=== PATIENT | female | born 2000 | race Caucasian/White ===

== ENCOUNTER 2020-08-19 04:35 | Emergency (ER) | payer BC ==
[2020-08-19 07:48] LABS: MONONUCLEAR CELLS 22.3 (75-100); RBC (AUTOMATED) 5000 (0-2000); WBC (AUTOMATED) 22830 (0-200)
[2020-08-19 07:49] LABS: POLYMORPHONUCLEAR % 77.7 (0-25)
[2020-08-20 13:21] LABS: PROTEIN, BODY FLUID 5.3 g/dL (.)
== END 2020-08-19 06:35 | disposition home or self-care (01) ==
LOC: ER1 04:35
PROVIDERS: Family Medicine
DX: M65.862 Other synovitis and tenosynovitis, left lower leg (principal)
CPT/HCPCS: 73562; 82945; 84157; 87070; 87205; 99283

== ENCOUNTER → 2020-09-03 | Outpatient (CLI) | payer BC ==
[2020-09-03 12:52] LABS: RED BLOOD COUNT 4.18 M/UL (4.00-5.10); WHITE BLOOD COUNT 11.5 K/UL (4.5-11.0)
== END ==
LOC: LAB 11:51
PROVIDERS: Orthopaedic Surgery
DX: M25.462 Effusion, left knee (principal); M79.89 Other specified soft tissue disorders
CPT/HCPCS: 36415; 85025; 85652; 86140

== ENCOUNTER → 2020-09-05 | Outpatient (CLI) | payer BC | LOC: KOH-I 15:21 | DX: R22.42 Localized swelling, mass and lump, left lower limb (principal) | CPT/HCPCS: 93971 ==

== ENCOUNTER → 2020-09-10 | Outpatient (CLI) | payer BC ==
[2020-09-11 11:15] LABS: RHEUMATOID ARTHRITIS FACTOR <10.0 IU/mL (0.0-13.9)
[2020-09-15 16:11] LABS: IGG P18 AB. Present (.); IGG P23 AB. Present (.); IGG P28 AB. Present (.); IGG P30 AB. Present (.); IGG P39 AB. Present (.); IGG P41 AB. Present (.); IGG P45 AB. Present (.); IGG P58 AB. Present (.); IGG P66 AB. Present (.); IGG P93 AB. Present (.); IGM P23 AB. Present (.); IGM P39 AB. Absent (.); IGM P41 AB. Absent (.); LYME IGG WB INTERP. Positive (.); LYME IGG/IGM AB 2.89 ISR (0.00-0.90); LYME IGM WB INTERP. Negative (.)
== END ==
LOC: LAB 11:41
PROVIDERS: Orthopaedic Surgery
DX: M25.462 Effusion, left knee (principal); M79.89 Other specified soft tissue disorders
CPT/HCPCS: 36415; 86431; 86618

== ENCOUNTER → 2020-09-15 | Outpatient (CLI) | payer BC ==
[2020-09-15 15:08] LABS: HEMOGLOBIN 13.5 gm/dl (12.3-15.3); RED BLOOD COUNT 4.72 M/UL (4.00-5.10); WHITE BLOOD COUNT 7.8 K/UL (4.5-11.0)
== END ==
LOC: LAB 14:42
PROVIDERS: Orthopaedic Surgery
DX: M79.89 Other specified soft tissue disorders (principal)
CPT/HCPCS: 36415; 85025; 85652